=== PATIENT | female | born 1955 | race Caucasian/White ===

== ENCOUNTER 2016-06-16 10:47 | Observation (INO) | payer SELFPAY ==
[2016-06-16] MEDS ORDERED: Aspirin Low Dose CHEW TAB* 81 MG PO ONE (11:12)
[2016-06-16 12:20] LABS: Hematocrit 39 % (35-47); Hemoglobin 13.3 g/dl (12.0-16.0); Mean Corpuscular HGB Conc 34 g/dl (31-36); Mean Corpuscular Hemoglobin 31 pg (27-31); Mean Corpuscular Volume 91 fL (80-97); Mean Platelet Volume 9 um3 (7.4-10.4); Red Cell Distribution Width 13 % (10.5-15); White Blood Count 7.4 10^3/ul (3.5-10.8)
[2016-06-16] MEDS ORDERED: NS 0.9% 1000 ML* 1,000 ML IV ONE (12:27)
[2016-06-16 12:35] LABS: Albumin 4.2 g/dL (3.2-5.2); Calcium 9.7 mg/dL (8.6-10.3); EGFR African American 101.7 (>60); EGFR Non-African American 79.1 (>60); Globulin 2.7 g/dL (2-4); Magnesium 2.2 mg/dL (1.9-2.7); Potassium 4.1 mmol/L (3.5-5.0); Total Bilirubin 0.4 mg/dL (0.2-1.0); Total Protein 6.9 g/dL (6.4-8.9)
[2016-06-16 12:42] LABS: TSH (Thyroid Stimulating Horm) 1.49 mcIU/mL (0.34-5.60)
--- NOTE | 2016-06-16 12:43 | RAD ---
INDICATION: Chest pain COMPARISON: October 14, 2012 TECHNIQUE: An AP portable view obtained at 1220 hours is submitted. FINDINGS: Bones/Soft Tissues: There are no acute bony findings. Cardiomediastinal: The cardiomediastinal silhouette is normal. Lungs: There are no infiltrates. Pleura: There are no pleural effusions. Other: None IMPRESSION: No active disease.
--- NOTE | 2016-06-16 14:01 | ED ---
Vincent Alfonso Billy, scribed for Ryan Chirinos MD on 06/16/16 at 1219 . HPI Chest Pain - HPI Summary HPI Summary: Patient is a 61 year-old female coming to [facility] for evaluation of chest pain and right-sided jaw pain since yesterday. She says that yesterday, she felt bloated, nauseated. She describes lower sternal chest pressure, "below the breast," that is worse with exertion. She states that today, as she walked up and down stairs, she had diaphoresis and fatigue that was much worse than usual. She also reports SOB with exertion. However, the pain in her jaw, pain severity 5/10, is worse than that compared to her chest pain, severity 3/10. - History of Current Complaint Chief Complaint: EDChestPainROMI Time Seen by Provider: 06/16/16 12:11 Hx Obtained From: Patient Onset/Duration: Started Hours Ago, Still Present Timing: Constant Initial Severity: Moderate Current Severity: Moderate Pain Intensity: 3 Pain Scale Used: 0-10 Numeric Chest Pain Location: Mid Sternal Chest Pain Radiates: Yes Chest Pain Radiates To:: Jaw Character: Pressure/Squeezing Aggravating Factor(s): Exertion Alleviating Factor(s): Nothing Associated Signs and Symptoms: Positive: Shortness of Breath, Diaphoresis, Nausea, Other: - fatigue - Allergy/Home Medications Allergies/Adverse Reactions: Allergies Allergy/AdvReac Type Severity Reaction Status Date / Time No Known Allergies Allergy Verified 06/16/16 11:28 PMH/Surg Hx/FS Hx/Imm Hx Endocrine/Hematology History: Denies: Hx Diabetes Cardiovascular History: Reports: Hx Hypercholesterolemia, Hx Hypertension - ON MEDICATION Denies: Hx Pacemaker/ICD History: Denies: Hx Dialysis, Hx Renal Disease Sensory History: Denies: Hx Hearing Aid Psychiatric History: Denies: Hx Panic Disorder - Cancer History Cancer Type, Location and Year: BASAL CELL CARCINOMA-BACK OF NECK REMOVED-NO OTHER TREATMENT - Surgical History Surgery Procedure, Year, and Place: Laproscopy for fertility - . WISDOM TEETH 1978 Infectious Disease History: No Infectious Disease History: Denies: Traveled Outside the [place] in Last 30 Days - Family History Known Family History: Positive: Cardiac Disease, Other - no hx of gout or severe osteoarthritis - Social History Alcohol Use: Occasionally Substance Use Type: Reports: None Smoking Status (MU): Never Smoked Tobacco Have You Smoked in the Last Year: No Review of Systems Positive: Fatigue, Skin Diaphoresis Positive: Chest Pain Positive: Shortness Of Breath Positive: Nausea, Other - bloating Positive: Other - jaw pain. Negative: Myalgia, Edema All Other Systems Reviewed And Are Negative: Yes Physical Exam Triage Information Reviewed: Yes Vital Signs On Initial Exam: Initial Vitals Temp Pulse Resp BP Pulse Ox 97.4 F 96 16 125/66 98 06/16/16 10:50 06/16/16 10:50 06/16/16 10:50 06/16/16 10:50 06/16/16 10:50 Vital Signs Reviewed: Yes Appearance: Positive: Well-Appearing, No Pain Distress Skin: Positive: Warm, Skin Color Reflects Adequate Perfusion, Dry Head/Face: Positive: Other - TMJ clicks when opening/closing jaw. Right-sided Almodovar's Palsy, chronic. When she smiles, the right corner of her mouth does not come up, the right eyelid drifts slower than the left eyelid. Eyes: Positive: EOMI, KRISTY ENT: Positive: Normal ENT inspection Neck: Positive: Supple, Nontender Respiratory/Lung Sounds: Positive: Clear to Auscultation, Breath Sounds Present Cardiovascular: Positive: RRR Abdomen Description: Positive: Nontender, Soft Musculoskeletal: Positive: Normal, Strength/ROM Intact. Negative: Edema Left, Edema Right Neurological: Positive: Normal, Sensory/Motor Intact, Alert, Oriented to Person Place, Time Psychiatric: Positive: Normal, Affect/Mood Appropriate - [place] Coma Scale Coma Scale Total: 15 Diagnostics - Vital Signs Vital Signs Temp Pulse Resp BP Pulse Ox 06/16/16 11:30 87 23 127/69 97 06/16/16 11:17 19 124/69 06/16/16 11:16 16 06/16/16 10:50 97.4 F 96 16 125/66 98 - Laboratory Lab Results: Lab Results 06/16/16 06/16/16 06/16/16 Range/Units 11:17 11:17 11:17 WBC 7.4 (3.5-10.8) 10^3/ul RBC 4.30 (4.0-5.4) 10^6/ul Hgb 13.3 (12.0-16.0) g/dl Hct 39 (35-47) % MCV 91 (80-97) fL MCH 31 (27-31) pg MCHC 34 (31-36) g/dl RDW 13 (10.5-15) % Plt Count 299 (150-450) 10^3/ul MPV 9 (7.4-10.4) um3 Neut % (Auto) 74.1 (38-83) % Lymph % (Auto) 16.7 L (25-47) % [place] % (Auto) 6.1 (1-9) % Eos % (Auto) 2.1 (0-6) % Baso % (Auto) 1.0 (0-2) % Absolute Neuts (auto) 5.5 (1.5-7.7) 10^3/ul Absolute Lymphs (auto) 1.2 (1.0-4.8) 10^3/ul Absolute Monos (auto) 0.5 (0-0.8) 10^3/ul Absolute Eos (auto) 0.2 (0-0.6) 10^3/ul Absolute Basos (auto) 0.1 (0-0.2) 10^3/ul Absolute Nucleated RBC 0 10^3/ul Nucleated RBC % 0 INR (Anticoag Therapy) 0.80 L (0.89-1.11) APTT 26.9 (26.0-36.3) seconds D-Dimer, Quantitative < 200 (Less Than 230) ng/mL Sodium 138 (133-145) mmol/L Potassium 4.1 (3.5-5.0) mmol/L Chloride 102 (101-111) mmol/L Carbon Dioxide 28 (22-32) mmol/L Anion Gap 8 (2-11) mmol/L BUN 9 (6-24) mg/dL Creatinine 0.75 (0.51-0.95) mg/dL Est GFR ( Amer) 101.7 (>60) Est GFR (Non-Af Amer) 79.1 (>60) BUN/Creatinine Ratio 12.0 (8-20) Glucose 114 H (70-100) mg/dL Lactic Acid (0.5-2.0) mmol/L Calcium 9.7 (8.6-10.3) mg/dL Magnesium 2.2 (1.9-2.7) mg/dL Total Bilirubin 0.40 (0.2-1.0) mg/dL AST 19 (13-39) U/L ALT 13 (7-52) U/L Alkaline Phosphatase 84 (34-104) U/L Total Creatine Kinase 53 (10-223) U/L CK-MB (CK-2) 2.1 (0.6-6.3) ng/mL Myoglobin 25.3 (14.3-65.8) ng/mL Troponin I 0.00 (<0.04) ng/mL B-Natriuretic Peptide ( - 100) pg/mL Total Protein 6.9 (6.4-8.9) g/dL Albumin 4.2 (3.2-5.2) g/dL Globulin 2.7 (2-4) g/dL Albumin/Globulin Ratio 1.6 (1-3) Lipase 27 (11.0-82.0) U/L TSH 1.49 (0.34-5.60) mcIU/mL 06/16/16 06/16/16 Range/Units 11:17 11:17 WBC (3.5-10.8) 10^3/ul RBC (4.0-5.4) 10^6/ul Hgb (12.0-16.0) g/dl Hct (35-47) % MCV (80-97) fL MCH (27-31) pg MCHC (31-36) g/dl RDW (10.5-15) % Plt Count (150-450) 10^3/ul MPV (7.4-10.4) um3 Neut % (Auto) (38-83) % Lymph % (Auto) (25-47) % [place] % (Auto) (1-9) % Eos % (Auto) (0-6) % Baso % (Auto) (0-2) % Absolute Neuts (auto) (1.5-7.7) 10^3/ul Absolute Lymphs (auto) (1.0-4.8) 10^3/ul Absolute Monos (auto) (0-0.8) 10^3/ul Absolute Eos (auto) (0-0.6) 10^3/ul Absolute Basos (auto) (0-0.2) 10^3/ul Absolute Nucleated RBC 10^3/ul Nucleated RBC % INR (Anticoag Therapy) (0.89-1.11) APTT (26.0-36.3) seconds D-Dimer, Quantitative (Less Than 230) ng/mL Sodium (133-145) mmol/L Potassium (3.5-5.0) mmol/L Chloride (101-111) mmol/L Carbon Dioxide (22-32) mmol/L Anion Gap (2-11) mmol/L BUN (6-24) mg/dL Creatinine (0.51-0.95) mg/dL Est GFR ( Amer) (>60) Est GFR (Non-Af Amer) (>60) BUN/Creatinine Ratio (8-20) Glucose (70-100) mg/dL Lactic Acid 1.3 (0.5-2.0) mmol/L Calcium (8.6-10.3) mg/dL Magnesium (1.9-2.7) mg/dL Total Bilirubin (0.2-1.0) mg/dL AST (13-39) U/L ALT (7-52) U/L Alkaline Phosphatase (34-104) U/L Total Creatine Kinase (10-223) U/L CK-MB (CK-2) (0.6-6.3) ng/mL Myoglobin (14.3-65.8) ng/mL Troponin I (<0.04) ng/mL B-Natriuretic Peptide 10 ( - 100) pg/mL Total Protein (6.4-8.9) g/dL Albumin (3.2-5.2) g/dL Globulin (2-4) g/dL Albumin/Globulin Ratio (1-3) Lipase (11.0-82.0) U/L TSH (0.34-5.60) mcIU/mL Result Diagrams: 06/16/16 11:17 06/16/16 11:17 Lab Statement: Any lab studies that have been ordered have been reviewed, and results considered in the medical decision making process. - Radiology CXR Xray Interpretation: No Acute Changes Radiology Interpretation Completed By: Radiologist Re-Evaluation - Re-Evaluation First Eval Re-Evaluation Time: 13:31 Comment: Labs and imaging reviewed and discussed with the patient. Agrees with plan for admission. Chest Pain Course/Dx - Course Course Of Treatment: NO CRITICAL CARE TIME. Assessment/Plan: WELL IN ED. ADMIT HOSPITALIST STABLE. - Diagnoses Provider Diagnoses: Chest pain - Provider Notifications Discussed Care Of Patient With: Dr. Kang (hospitalist) @ [id number]: accepts admission. Discharge - Discharge Plan Condition: Stable Disposition: ADMITTED TO [facility] Referrals: Naida Villa MD [Primary Care Provider] - The documentation as recorded by the Vincent gómez Billy accurately reflects the service I personally performed and the decisions made by me, Ryan Chirinos MD.
[2016-06-16] MEDS ORDERED: Nitroglycerin TAB 0.4 MG* 0.4 MG TAB SL PRN (15:21)
[2016-06-16] MEDS ORDERED: Acetaminophen TAB* 325 MG PO PRN (15:21)
[2016-06-16] MEDS ORDERED: Morphine INJ* 2 MG/ML 1 ML SYRINGE IV PRN (15:21)
--- NOTE | 2016-06-16 21:40 | HP ---
HISTORY AND PHYSICAL: DATE OF ADMISSION: 06/16/16 TIME OF EVALUATION: 2:20 p.m. PRIMARY CARE PROVIDER: Dr. Naida Villa. CHIEF COMPLAINT: Chest pain. HISTORY OF PRESENT ILLNESS: Ms. Mejia is a 61-year-old lady with a past medical history of hypertension, Almodovar's palsy, depression who presented to the emergency room with complaints of chest tightness radiating to the right side of her jaw. She states that she has had discomfort on and off since yesterday morning and as it persisted today, she contacted her PCP who recommended she come to the emergency room for further evaluation. The patient states that she did not notice anything that made the discomfort worse or better, but this morning, when she was going up and down the stairs at her home, she became more short of breath and also became diaphoretic. She did not feel near syncopal, but she was able to see down and the symptoms subsided. She denies prior episodes like this in the past, but she does have a family history of coronary artery disease and that was one of the things that concerned her enough to come to the emergency room. PAST MEDICAL HISTORY: 1. Hypertension. 2. Almodovar's palsy. 3. Depression. MEDICATIONS: 1. Vitamin B complex 1 tablet p.o. daily. 2. Vitamin D 2000 units p.o. daily. 3. Cymbalta 60 mg p.o. daily. 4. Lisinopril 5 mg p.o. daily. 5. Claritin D 10 mg p.o. daily. ALLERGIES: No known drug allergies. FAMILY HISTORY: Her mother had a history of coronary artery disease and congestive heart failure, in her 60s. Father in his 80s of prostate cancer, melanoma, but also had CAD. The brother had a CABG at age 47. SOCIAL HISTORY: She denies any history of tobacco, alcohol, or drug abuse. Surrogate decision maker is her son, Per Mejia. Phone number is [phone]. REVIEW OF SYSTEMS: A 14-point review of systems was performed and all the pertinent negative findings are in the HPI. PHYSICAL EXAMINATION GENERAL: The patient is a pleasant lady sitting up in the ED stretcher in no acute distress. VITAL SIGNS: Temperature 98.8, heart rate is 85, respiratory rate is 20, oxygen saturation 97% on room air, blood pressure is 104/62. HEENT: Pupils are equal. Moist mucous membranes. Face is asymmetric with right- sided mild weakness. CHEST: Breath sounds present bilaterally with no added sounds. CVS: Normal S1, S2. Regular rate and rhythm. ABDOMEN: Soft, nontender, nondistended. Bowel sounds are present. EXTREMITIES: No edema. NEUROLOGIC: She is alert and oriented x3. Able to move all 4 extremities. LABORATORY AND IMAGING DATA: The patient had a CBC that was normal except for mild lymphopenia, 16.7%. INR was 0.8 with a D-dimer less than 200. Chemistries showed sodium of 138, potassium 4.1, chloride of 102, bicarb of 28, BUN of 9, creatinine of 0.75, glucose 114, lactic acid of 1.3, calcium of 9.7, magnesium of 2.2. LFTs are normal. Troponin is 0. BNP was 10. Chest x-ray showed no active disease. EKG done on June 16 at 10:59 showed sinus rhythm at 89 beats per minute with Q waves in III and T inversions in V2, but no other changes when compared to her prior EKG from October 2012. ASSESSMENT AND PLAN: Ms. Mejia is a 61-year-old lady with a past medical history of Almodovar's palsy, hypertension, depression, family history of coronary artery disease, who presented to the emergency room with complaints of chest discomfort radiating to the right jaw associated with diaphoresis and dyspnea on exertion. 1. Chest pain, rule out acute coronary syndrome: The patient will be admitted as observation to the telemetry floor. I am going to check serial troponins to rule out acute coronary syndrome. If acute coronary syndrome is ruled out, then I am going to pursue an exercise stress test in the morning. 2. Hypertension: Continue lisinopril. 3. Depression: Continue Cymbalta. 4. DVT prophylaxis: The patient has a score of 2 on a DVT Prophylaxis Risk Assessment Guide and she will be started on subcutaneous heparin. 5. Code status is full. TIME SPENT: Approximately 30 minutes was spent with the patient interview, medical records review, physical examination to complete this admission, more than half this time was spent [id number] with the patient in coordination of care. CC: Dr. Naida Villa* [id number]/[facility] #: [id number] [facility] HOSPITALLynne
[2016-06-16] MEDS: Heparin VIAL(*) 5000 UNITS/ML VIAL (FIVE THOUSAND) SUBCUT SCH (22:42)
[2016-06-17 05:54] LABS: HDL Cholesterol 33.7 mg/dL
[2016-06-17] MEDS: Heparin VIAL(*) 5000 UNITS/ML VIAL (FIVE THOUSAND) SUBCUT SCH (06:01)
[2016-06-17] MEDS ORDERED: Aspirin EC Low Dose* 81 MG TAB.EC PO SCH (09:00)
--- NOTE | 2016-06-17 12:20 | RAD ---
INDICATION: Chest pain COMPARISON: None TECHNIQUE: A single day SPECT protocol was utilized. Rest images were acquired following the intravenous injection of 10.7 millicuries of technetium 99m tetrofosmin. Exercise stress images were acquired following the intravenous administration of 25.8 millicuries of technetium 99m tetrofosmin. The patient was exercised to a peak heart rate of 152 which is 91% of age predicted maximum. FINDINGS: There are no defects of the stress-induced or fixed nature. There is mild diaphragmatic attenuation artifact. The cardiac chamber size is normal. There are no wall motion abnormalities. The ejection fraction is calculated at 78 percent during stress. IMPRESSION: NO DEFECTS OF THE STRESS-INDUCED OR FIXED NATURE. ASSESSMENT: LOW-RISK Based on imaging criteria from ACC/AHA 2002 Guideline Update for the Management of Patients With Chronic Stable Angina Table 23. Noninvasive Risk Stratification.
[2016-06-17 16:03] VITALS: BP 106/58
--- NOTE | 2016-06-18 12:36 | DS ---
DISCHARGE SUMMARY: DATE OF ADMISSION: 06/16/16 DATE OF DISCHARGE: 06/17/16 HOSPITAL STATUS: Observation . ATTENDING PROVIDER: Dr. Fontanez * (dictated by JOANNE Cordero) PRIMARY DIAGNOSES: 1. Chest pain, unclear etiology. 2. Hyperlipidemia. SECONDARY DIAGNOSES: 1. Hypertension. 2. Depression. 3. History of Almodovar's palsy affecting her right side. HISTORY OF PRESENT ILLNESS AND HOSPITAL COURSE: Please see history and physical by Dr. Fontanez for full admission details, but in summary this is a 61- year-old female with a past medical history of hypertension, Almodovar's palsy, and depression who presents to the emergency department on 06/16/16 with complaint of chest tightness radiating to her right side of her jaw. Ms. Mejia reported that she has had discomfort on and off since the day prior and appeared to be persistent. So, she contacted her PCP, who recommend she come to the emergency department for further evaluation. She denied anything that made the discomfort worse or better. She reported that when she went up and down the stairs at her home she became more short of breath and also became diaphoretic. She reports she did not feel near syncopal but she did sit down and the symptoms seem to subside. On evaluation in the emergency department, her labs were unremarkable. EKG showed sinus rhythm with a rate of 89 beats per minute with Q-waves in III and T inversions in V2, but no other changes when compared to her prior EKG from October 2012. She is admitted to the hospitalist service on telemetry, where her troponins were trended and all 4 were flat at 0.00. She underwent a nuclear exercise stress test in which the first portion showed "moderate DTS, negative maximal stress test, reduced exercise capacity with dyspnea on exertion " which is a negative exercise portion. The patient underwent nuclear medicine cardiac testing, which showed "no defects of the stress induced or fixed nature " and placed the patient at low risk. On evaluation of the patient at the bedside, the patient denies any further chest pain. She reports continued intermittent right jaw pain and reports that it "hurts when I swallow." She points to two different areas being tender, one close to her preauricular and parotid nodes and when palpated are not tender to palpation, but appear possibly mildly enlarged as well. She reports that it is tender when she swallows and points to the area where her chain of deep cervical nodes are and points to a specific area approximately half way down her right lateral neck and states that it is tender on palpation. When palpated it possibly is mildly enlarged and is noted to be tender to touch. The patient denies any recent fevers, chills, or viral like symptoms, but it is possible that she has a viral syndrome causing some enlarged lymph nodes. I discussed with the patient to follow up closely with her primary care provider and if she has any concerning or worsening symptoms to see her PCP sooner or return to the emergency department for further evaluation. The patient does not have a leukocytosis and as stated above her labs truly are unremarkable except it is noted that she has an abnormal fasting lipid profile with triglycerides of 270, cholesterol of 210, LDL of 124, and HDL of 33.7. The patient is stable for discharge to home with close follow up with her PCP. She has remained afebrile and hemodynamically stable and discussed with the patient to follow up with her primary regarding her abnormal lipid profile. The patient does not want to start a statin medication. It is noted that this is not new for her and she has had abnormal lipid profile going back as far as 2013 and what we have in our system. PHYSICAL EXAMINATION: Vital Signs: Temperature 97.9, heart rate 80, respirations 16, O2 sat 100% on room air, blood pressure 115/61. Appearance: A 61-year-old female sitting up in the hospital bed. Alert and oriented x3, in no acute distress. Very pleasant, appropriate to situation. HEENT: Head is normocephalic, atraumatic. Pupils are equal and reactive to light. Oropharynx is clear. Moist mucous membranes. Good dentition. Neck: Supple. Right lateral tenderness to cervical chain half way down the patient's neck. Possible mild enlargement in her right preauricular and parotid nodes. These are nontender to palpation. Cardiac: S1, S2. Regular rate and rhythm. Respiratory: Lungs are clear to auscultation bilaterally. Good aeration throughout. Abdomen: Soft, nontender, nondistended. Normal bowel sounds x4. Extremities: No clubbing or cyanosis noted. No edema noted. Neuro: Alert and oriented x3. Moves all extremities equally. Strength is 5/5 throughout. The patient is noted to have right facial droop secondary to her Almodvoar's palsy. This is chronic for the patient. LABORATORY DATA AND DIAGNOSTIC STUDIES: Please note these are from 06/16/16; sodium 138, potassium 4.1, chloride 102, carbon dioxide 28, anion gap 8, BUN 9, creatinine 0.75, glucose 114, lactic acid 1.3, calcium 9.7, magnesium 2.2, total bilirubin 0.40, AST 19, ALT 13, alkaline phosphatase 84, total creatinine kinase 53, CK/MB 2.1, myoglobulin 25.3, troponin 0.00. D-dimer less than 200. APTT 26.9, INR 0.80 ( ). TSH 1.49. BNP 10, total protein 6.9, albumin 4.2, lipase 27. WBC is 7.4, RBC 4.30, HGB 13.3, HCT 39, MCV 91, MCH 31, MCHC 34, RDW 13, platelet count 299. Labs from 06/17/16 fasting lipid profile; triglycerides 270, cholesterol 212, LDL 124, HDL 33. Chest x-ray impression: No active disease. Nuclear medicine cardiac impression: "No defect of stress induced or fixed nature" placing the patient at low risk. DISCHARGE PLAN: 1. The patient is stable for discharge to home. He is instructed to call Dr. Villa to be seen within 3 to 5 days. The patient is also instructed to return to the emergency department with any worsening or concerning symptoms. 2. The patient is to follow up with Dr. Villa regarding her abnormal lipid profile. TIME SPENT: Approximately 60 minutes was spent on this discharge. TALIA BROOKS, [place] [id number]/[facility] #: [id number] L[place]IS[place]
== END 2016-06-17 16:49 | disposition home or self-care (01) ==
LOC: ED 10:47 → MEDTELE 13:37
PROVIDERS: ADMIT Internal Medicine; ATTEND Internal Medicine
DX: R07.9 Chest pain, unspecified (principal); E78.5 Hyperlipidemia, unspecified; I10 Essential (primary) hypertension; R06.02 Shortness of breath; F32.9 Major depressive disorder, single episode, unspecified; G51.0 Bell's palsy; Z79.899 Other long term (current) drug therapy
CPT/HCPCS: 36415; 71010; 78452; 80053; 80061; 82550; 82553; 83605; 83690; 83735; 83874; 83880; 84443; 84484; 85025; 85379; 85610; 85730; 93005; 93017; 96360; 96361; 99283; A9270-GY; A9502; G0378; J1644

== ENCOUNTER 2018-07-29 07:04 | Day surgery (SDC) | payer BC ==
[~2018-07-29 07:04] MED LIST: Acetaminophen TAB* 325 MG PO ONE; Buffered Lidocaine 1% SYRIN* 1 ML/SYRINGE INTRADERM ONE; Gabapentin CAP(*) 300 MG PO ONE; Lactated Ringers 1000 ML Bag* 1,000 ML IV SCH
[2018-07-29] MEDS ORDERED: Gabapentin CAP(*) 300 MG ONE (07:28)
[2018-07-29] MEDS ORDERED: ceFAZolin 2 GM PREMIX in ORs 2 GM/50 ML BAG IVPB ONE (07:29)
[2018-07-29] MEDS ORDERED: Lidocaine 2.5%/Prilocain 2.5%* 5 GM TUBE ONE (07:29)
[2018-07-29] MEDS ORDERED: Acetaminophen TAB* 325 MG ONE (07:29)
[2018-07-29] MEDS ORDERED: Buffered Lidocaine 1% SYRIN* 1 ML/SYRINGE INTRADERM ONE (07:29)
[2018-07-29] MEDS ORDERED: Midazolam* 1 MG/ML 2 ML VIAL (2 MG) ONE (10:00)
[2018-07-29] MEDS ORDERED: fentaNYL* 50 MCG/ML 2 ML VIAL (100 MCG VIAL) ONE ×3 (10:00→16:14)
[2018-07-29] MEDS ORDERED: Lidocaine 1% INJ* 10 MG/ML 30 ML SDV ONE (11:43)
[2018-07-29] MEDS ORDERED: Bupivacaine 0.5%* 50 ML VIAL ONE (11:44)
[2018-07-29] MEDS ORDERED: Methylene Blue 0.5 %* 50 MG/10 ML AMP IV ONE (12:36)
[2018-07-29] MEDS ORDERED: Lidocaine 2% PF * 5 ML VIAL ONE (13:03)
[2018-07-29] MEDS ORDERED: Propofol* 10 MG/ML 20 ML BTL ONE (13:22)
[2018-07-29] MEDS ORDERED: Dexamethasone IV* 4 MG/ML 1 ML (4 MG) ONE (13:22)
[2018-07-29] MEDS ORDERED: Ondansetron INJ* 2 MG/ML VIAL ONE (13:22)
[2018-07-29] MEDS ORDERED: Bupivacaine 0.25% SDV PF* 10 ML VIAL INJ ONE (13:34)
[2018-07-29] MEDS ORDERED: Naloxone* 0.4 MG/ML 1 ML VIAL IV PRN (13:50)
[2018-07-29] MEDS ORDERED: Acetaminophen TAB* 325 MG PO PRN (13:50)
[2018-07-29] MEDS ORDERED: HYDROcodone/ACETAMIN 5-325 MG* 1 TAB PO PRN ×2 (13:50)
[2018-07-29] MEDS ORDERED: DiMENhydriNATE IV* 50 MG/ML VIAL IV PUSH PRN (13:50)
[2018-07-29] MEDS ORDERED: PROCHLORPERAZINE INJ 5 MG/ML 2 ML VIAL IV PRN (13:50)
[2018-07-29] MEDS ORDERED: diPHENhydraMINE IV* 50 MG/ML 1 ml VIAL (BENADRYL) IV PRN (13:50)
[2018-07-29] MEDS ORDERED: HYDROcodone/ACETAMIN 5-325 MG* 1 TAB ONE (16:14)
[2018-07-29] MEDS: fentaNYL* 50 MCG/ML 2 ML VIAL (100 MCG VIAL) IV PRN ×2 (16:15→16:31)
[2018-07-29 17:08] VITALS: BP 137/71
--- NOTE | 2018-07-29 22:45 | OP ---
CC: Dr. Naida Villa; Zaynab Meadows MD * DATE OF OPERATION: 07/29/18 - [facility] DATE OF : 59 SERVICE: General Surgery. PRIMARY CARE PHYSICIAN: Naida Villa MD. ONCOLOGIST: Zaynab Meadows MD. SURGEON: Ruth Ann Lau MD. HEDGE FUND MANAGER: JOANNE Evans, and Amina Carrasquillo MD ANESTHESIOLOGIST: Dr. Deondre Neal. ANESTHESIA: General endotracheal anesthesia. PRE-OP DIAGNOSIS: Right breast cancer. POST-OP DIAGNOSIS: Right breast cancer. OPERATIVE PROCEDURE: Needle localized right breast lumpectomy and sentinel lymph node biopsy. SPECIMEN: Right breast mass and right axillary sentinel lymph node. ESTIMATED BLOOD LOSS: Minimal, less than 10 cc. INDICATION FOR SURGERY: Ms. Mejia is a healthy 63-year-old female with a history of right breast invasive ductal adenocarcinoma that was discovered by an abnormality noted on screening mammogram. She gave informed consent for a right breast lumpectomy and a sentinel lymph node biopsy. Of note, prior to the procedure being performed, it was noted that her lymphoscintigraphy did not show uptake in the axilla and therefore, she also gave informed consent for possible right axillary node dissection if the sentinel lymph node could not be identified. She understood the risks, benefits, and alternatives of the procedure and she wished to proceed. DESCRIPTION OF PROCEDURE: The patient was brought back to the operating room and placed on the operating table in the supine position. Sequential compression devices were placed in the bilateral lower extremities for DVT prophylaxis. Antibiotics with Ancef was administered prior to incision. General endotracheal anesthesia was induced in the patient's right breast, axilla, and right arm was prepped and draped in normal sterile fashion. Imaging was displayed on the OR monitors. Prior to beginning the procedure, the wire also had been cut closer to skin level. A time-out was performed, verifying the patient's name, MR number, and the procedure to be performed, which was a right breast wire localized lumpectomy and a sentinel lymph node biopsy with possible axillary node dissection. Prior to beginning, approximately 5cc of methylene blue was infiltrated around the wire in the direction of where the lesion was noted on imaging. Local anesthesia was administered around the wire as well. A curvilinear incision was made around the wire that was located approximately at 2 o'clock in the right breast. The skin was divided down to the subcutaneous tissue and the wire was followed posteriorly along its entire course and a cone of breast tissue was taken surrounding it. Once this was satisfactorily done, the breast lump containing the wire was removed and the margins were marked as short suture at the superior border, medium suture at the medial border, and a long suture at the lateral border. The specimen was sent to mammography, where it was confirmed that the mammographic abnormality, wire, and clip were all contained within the specimen. Hemostasis was obtained in the breast cavity and clips were used to eunice the borders of this cavity to facilitate later radiation. Next, attention was turned towards the sentinel lymph node biopsy. Given that the lymphoscintigraphy prior to the procedure did not show a definitive sentinel lymph node after several hours of injecting the radiotracer around the areola, it was not entirely clear whether or not the sentinal lymph node would be identified with the [place] counter. An incision was made in the axilla and the skin was divided down to the subcutaneous tissue all the way down to the axillary fat pad which was elevated. There was no obvious methylene blue in any of the lymphatics; however, using the [place] counter, there was a sentinel hot node that was definitively identified. Its in situ count was 120 and then when the node was dissected out, the ex vivo count was 142. After this, the remaining axillary bed count was 9, confirming that sentinel lymph node had been taken. Therefore, hemostasis was obtained at the axilla and once this was done, the breast cavity was again checked for hemostasis and local anesthesia was infiltrated into the breast cavity again. At this point, the axillary and breast incisions were both closed using interrupted 3-0 Vicryl sutures at the subdermal layer and then closing the skin using 4-0 Monocryl suture. Sterile dressing was then placed and the patient's anesthesia was reversed, and she was taken to the PACU in stable condition. At the end of the case, all counts were correct and I was present during the entirety of the case. [id number] #: [id number] LARISSA
== END 2018-07-29 17:56 | disposition home or self-care (01) ==
LOC: OR 07:04
PROVIDERS: ATTEND Surgery
DX: C50.911 Malignant neoplasm of unspecified site of right female breast (principal); I10 Essential (primary) hypertension; E78.5 Hyperlipidemia, unspecified; G51.0 Bell's palsy; F34.1 Dysthymic disorder
CPT/HCPCS: 77061; 78195; 88307; 88342; A9270-GY; A9541; G0279; J0690; J1100; J2250; J2405; J2704; J3010; J3490